=== PATIENT | male | born 1990 | race American Indian/Alaskan Native ===

== ENCOUNTER 2018-08-06 03:13 | Emergency (ER) | payer MEDICAID, OTHER ==
[~2018-08-06] VITALS: Ht 172.7 cm; Wt 68.0 kg
[~2018-08-06 03:13] MED LIST: CRUTCH1 EACH; PERCOCET 5-3251 EACH PO; ZOFRAN ODT8 MG PO
[2018-08-06] MEDS ORDERED: AUGMENTIN 875-1 EACH PO (04:56)
[2018-08-06] MEDS ORDERED: NORCO 5-325 TA1 EACH PO (05:13)
== END 2018-08-06 05:33 | disposition home or self-care (01) ==
LOC: ED 03:13
DX: S02.92XA Unspecified fracture of facial bones, initial encounter for closed fracture (principal); Z87.891 Personal history of nicotine dependence; Y04.8XXA Assault by other bodily force, initial encounter
CPT/HCPCS: 70450; 70486; 99284